=== PATIENT | female | born 1940 | race Hispanic/Latino ===

== ENCOUNTER 2024-12-21 10:26 | Emergency (ER) | payer MEDICARE ==
[~2024-12-21] VITALS: Ht 157.5 cm; Wt 71.7 kg
[2024-12-21] MEDS: IpraTROPium/alBUTERol SULFATE 3 ML SOLUTION IH ONE (10:52)
[2024-12-21 10:53] LABS: APPEARANCE,URINE CLEAR (CLEAR); BILIRUBIN,URINE NEGATIVE (NEGATIVE); COLOR,URINE LIGHT-YELLOW (YELLOW); GLUCOSE, URINE (UA) NEGATIVE (NEGATIVE); KETONES,URINE NEGATIVE (NEGATIVE); LEUKOCYTE ESTERASE ,URINE 25 Leu/uL (NEGATIVE); NITRATE,URINE NEGATIVE (NEGATIVE); PH,URINE 5.5 (5.0-8.0); PROTEIN,URINE NEGATIVE (NEGATIVE); UROBILINOGEN,URINE 0.2 mg/dL (0.2-1.0)
[2024-12-21 10:55] VITALS: PULSE 112; RESP 18
--- NOTE | 2024-12-21 10:55 | NUR ---
PENDING GFR RESULTS, IV SITE, & CONSENT FOR CT EXAM.
[2024-12-21 11:03] LABS: ADD UA MICROSCOPIC YES
[2024-12-21 11:04] LABS: BACTERIA,URINE RARE /HPF (None Seen); MUCUS,URINE RARE LPF (None Seen); SQUAMOUS EPITHELIAL CELL,UR RARE /HPF (0-2)
[2024-12-21] MEDS: ketOROlac 15MG/ML VIAL (15MG/ML) IV ONE (11:11)
[2024-12-21] MEDS: [UNRECOGNIZED DRUG - OTHER] IV ONE (11:12)
[2024-12-21] MEDS: LACTATED RINGERS 1000ML 1,000 ML IV ONE (11:12)
[2024-12-21] MEDS: Solu-medROL 40MG VIAL IVP ONE (11:12)
[2024-12-21 11:16] LABS: BASOPHILS # (AUTO) 0.02 K/uL (0.00-0.20); BASOPHILS % (AUTO) 0.2 % (0.0-5.0); EOSINOPHILS # (AUTO) 0.11 K/uL (0.00-0.70); EOSINOPHILS % (AUTO) 1.2 % (0.0-8.0); IMMATURE GRANULOCYTE ABSOLUTE 0.03 K/uL (0-1); LYMPHOCYTES # (AUTO) 1.6 K/uL (1.0-4.8); LYMPHOCYTES % (AUTO) 16.6 % (21.0-51.0); MEAN CORPUSCULAR HEMOGLOBIN 28.9 pg (27.0-33.0); MEAN CORPUSCULAR HGB CONC 32.4 g/dL (32.0-36.0); MEAN CORPUSCULAR VOLUME 88.9 fL (79-99); MONOCYTES # (AUTO) 0.7 K/uL (0.1-1.0); MONOCYTES % (AUTO) 6.9 % (3.0-13.0); NEUTROPHILS % (AUTO) 74.8 % (40.0-77.0); PLATELET COUNT (AUTO) 350 K/uL (130-400); RED BLOOD CELL COUNT(AUTO) 4.61 MIL/uL (4.00-5.50); RED CELL DISTRIBUTION WIDTH 15.5 % (11.0-15.5); WHITE BLOOD COUNT (AUTO) 9.4 K/uL (4.8-10.8)
[2024-12-21 11:44] LABS: COVID19 (SARS ANTIGEN RAPID) PRESUMPTIVE NEGATIVE (NEGATIVE); INFLUENZA TYPE B Negative For Type B (NEGATIVE)
[2024-12-21 11:48] LABS: INFLUENZA TYPE A Positive For Type A (NEGATIVE)
--- NOTE | 2024-12-21 12:01 | HMCIMG ---
PORTABLE CHEST RADIOGRAPH INDICATION: cough COMPARISON: None FINDINGS: laboratory monitor leads overlie the field of view. Heart size is normal. The pulmonary vascularity and sameer appear normal. No abnormal pulmonary parenchymal opacity or consolidation identified. No significant pleural effusion noted. No pneumothorax detected. Large hiatal hernia. IMPRESSION: Large hiatal hernia without radiographic evidence for any acute cardiopulmonary process.
[2024-12-21 12:11] LABS: CREATININE 0.7 mg/dL (0.5-1.0); POTASSIUM 3.9 mmol/L (3.5-5.1)
[2024-12-21] MEDS ORDERED: IOHEXOL-350 50ML VIAL IV ONE (12:34)
--- NOTE | 2024-12-21 12:46 | HMCIMG ---
CT NECK WITH CONTRAST INDICATION: Right neck submandibular swelling TECHNIQUE: 3D helical CT acquisition images were obtained from the level of the skull base to the thoracic inlet with 50 mL of Omnipaque 350 IV contrast and coronal and sagittal reformats. CT was performed with one or more of the following dose reduction techniques: Automated exposure control, adjustment of the mA and/or kV according to patient size, or use of iterative reconstruction technique. COMPARISON: None FINDINGS: Right parotid gland is larger than the left, and mild surrounding inflammatory fat stranding/edema detected without any discrete parotid gland lesion/mass, including swelling extending distally along the right neck without organized/drainable fluid collection. The visualized portions of the brain, skull base, and orbits appear normal. Moderate right and mild left maxillary sinus fluid. Moderate bilateral sphenoid sinus fluid. Mild bilateral ethmoid sinus mucosal thickening. The visualized nasopharynx and nasal cavity appear normal. The oral cavity, oropharynx, and hypopharynx appear normal. The cervical esophagus and visualized portion of the thoracic esophagus appear normal. The larynx and visualized trachea appear normal. The extramucosal spaces of the neck appear normal. The left parotid and both submandibular glands appear normal. No evidence for salivary duct dilation. 2.3 cm enhancing right thyroid lobe lesion. Left thyroid lobe appears normal. No cervical lymphadenopathy noted. The visualized osseous structures, vasculature, and soft tissues appear normal. The upper mediastinum and lung apices appear normal. IMPRESSION: Acute right parotiditis. 2.3 cm enhancing right thyroid lobe lesion. Correlation with thyroid function tests and nonemergent outpatient sonographic imaging is recommended, if not already performed. Acute moderate paranasal sinusitis.
[2024-12-21] MEDS ORDERED: OSEL75 PO (12:58)
[2024-12-21] MEDS ORDERED: AMOX1TAB16 PO (12:58)
--- NOTE | 2024-12-21 12:59 | ERN ---
General Chief Complaint: Cellulitis Stated Complaint: COUGH,MULTIPLE COMPLAINTS Time Seen by MD: 10:31 History of Present Illness Initial Comments 84-year-old female, history of hypertension, presents for right-sided face swelling. She reports that over the last few days she had a fever and body aches. He has had a dry cough. Today she woke up in the right side of her face is swollen. She has been taking [id number] medications for cold and flu. No dental pain or injury. No earache. No trauma. Allergies: Coded Allergies: No Known Allergies (Unverified Allergy, Unknown, 12/21/24) Past Medical History Past Medical History: Diabetes-Type II, High Cholesterol, Hypertension Past Surgical History: Other Surgical History Other: FOOT ROS Dictation CONSTITUTIONAL: Fever body aches HEAD/FACE: Right face swelling EENT: No eye pain, no blurred vision, no tearing, no double vision, no ear pain, no ear discharge, no nose pain, no nasal congestion, no throat pain, no throat swelling, no mouth pain. RESPIRATORY: Cough CARDIOVASCULAR: No chest pain, no edema, no palpitations, no syncope. GASTROINTESTINAL/ABDOMINAL: No abdominal pain, no constipation, no diarrhea, no nausea, no vomiting. GENITOURINARY: No abnormal discharge, no dysuria, no frequent urination, no hematuria. No complaints of pain in the genitals. MUSCULOSKELETAL: No back pain, no gout, no joint pain, no joint swelling, no muscle pain, no muscle stiffness, no neck pain. INTEGUMENTARY: No change in color, no change in hair/nails, no dryness, no lesion, no lumps, no rash. NEUROLOGICAL/PSYCH: No anxiety, not depressed, no emotional problem, no headache, no numbness, no pre-existing deficit, no history of seizures, no tremors, no weakness. HEMATOLOGIC/LYMPHATIC: Not anemic, no history of blood clots, no apparent bleeding, no bruising, glands not swollen. All Systems Negative, Except as Noted. Physical Exam Physical Exam Dictation VITAL SIGNS: Reviewed. GENERAL APPEARANCE: Alert, oriented x3, no acute distress HEAD AND FACE: Right parotid gland and swelling. EYES: PERRL, pink conjunctivas, eyelid no trauma, anterior chamber clear. EARS: Pinnas intact and no signs of trauma or erythema. Ear canals clear and no discharge. TMs no erythema. NOSE: No discharge, no bleeding. OROPHARYNX: Mouth normal, teeth no caries, tongue pink. Pharynx clear, no erythema. Tonsils no exudates, no abscesses noted. Mucous membrane moist. NECK: Supple, non-tender, no thyromegaly, no masses, no JVD, no bruits. BREAST: Deferred. CHEST: No tenderness, no crepitus, no paradoxical movement, no retractions. LUNGS: Clear, well-ventilated, symmetric, no rales, no wheezing, no rhonchi, no stridor, good breath sounds bilaterally. HEART: Regular rate, regular rhythm, no murmur, no gallops. VASCULAR: No peripheral edema. ABDOMEN: Soft, positive bowel sounds, nondistended, no guarding, nontender, no rebound, no masses no hepatomegaly, no splenomegaly, no Meneses's sign, no hernias. RECTAL: Deferred. GENITAL: Deferred. NEUROLOGICAL: Normal speech, gross motor function intact, gross sensory function intact. MUSCULOSKELETAL: Neck nontender, full range of motion, back nontender, full range of motion. EXTREMITIES: Nontender, full range of motion. SKIN: Color pink, dry, no turgor, no rash, no lacerations, no abrasions, no contusions. LYMPHATICS: Deferred. Results Laboratory and Microbiology Lab and Micro Result Laboratory Tests Test 12/21/24 10:42 12/21/24 10:50 12/21/24 11:17 Urine Color LIGHT-YELLOW (YELLOW) Urine Appearance CLEAR (CLEAR) Urine pH 5.5 (5.0-8.0) Urine Specific [place] 1.012 (1.001-1.031) Urine Protein NEGATIVE mg/dL (NEGATIVE) Urine Glucose (UA) NEGATIVE mg/dL (NEGATIVE) Urine Ketones NEGATIVE mg/dL (NEGATIVE) Urine Occult Blood +- (TRACE) (NEGATIVE) H Urine Nitrate NEGATIVE (NEGATIVE) Urine Bilirubin NEGATIVE mg/dL (NEGATIVE) Urine Urobilinogen 0.2 mg/dL (0.2-1.0) Urine Leukocyte Esterase 25 Chaya/uL (NEGATIVE) H Urine RBC 2-5 /HPF (0-1) H Urine WBC 2-5 /HPF (0-1) H Urine Squamous Epithelial Cells RARE /HPF (0-2) Urine Bacteria RARE /HPF (None Seen) White Blood Count 9.4 K/uL (4.8-10.8) Red Blood Count 4.61 MIL/uL (4.00-5.50) Hemoglobin 13.3 g/dL (12.0-16.0) Hematocrit 41.0 % (36-48) Mean Corpuscular Volume 88.9 fL (79-99) Mean Corpuscular Hemoglobin 28.9 pg (27.0-33.0) Mean Corpuscular Hemoglobin Concent 32.4 g/dL (32.0-36.0) Red Cell Distribution Width 15.5 % (11.0-15.5) Platelet Count 350 K/uL (130-400) Mean Platelet Volume 9.9 fL (7.5-10.5) Immature Granulocyte % (Auto) 0.3 % (0-1) Neutrophils (%) (Auto) 74.8 % (40.0-77.0) Lymphocytes (%) (Auto) 16.6 % (21.0-51.0) L Monocytes (%) (Auto) 6.9 % (3.0-13.0) Eosinophils (%) (Auto) 1.2 % (0.0-8.0) Basophils (%) (Auto) 0.2 % (0.0-5.0) Neutrophils # (Auto) 7.0 K/uL (1.8-7.7) Lymphocytes # (Auto) 1.6 K/uL (1.0-4.8) Monocytes # (Auto) 0.7 K/uL (0.1-1.0) Eosinophils # (Auto) 0.11 K/uL (0.00-0.70) Basophils # (Auto) 0.02 K/uL (0.00-0.20) Absolute Immature Granulocyte (auto 0.03 K/uL (0-1) Nucleated Red Blood Cells 0.0 % (0.0-0.19) Sodium Level 139 mmol/L (136-145) Potassium Level 3.9 mmol/L (3.5-5.1) Chloride Level 99 mmol/L (101-111) L Carbon Dioxide Level 30 mmol/L (21-32) Blood Urea Nitrogen 16 mg/dL (7-18) Creatinine 0.7 mg/dL (0.5-1.0) Glomerular Filtration Rate Calc 86 mL/min (>90) Random Glucose 108 mg/dL (70-105) H Lactic Acid Level 2.4 mmol/L (0.8-2.5) Total Calcium 9.2 mg/dL (8.5-10.1) Total Creatine Kinase 130 U/L (21-232) Troponin I High Sensitivity 39 ng/L (4-50) C-Reactive Protein, Quantitative 19.40 mg/L (0.5-3.0) H Influenza Type A Antigen Positive For Type A Influenza Type B Antigen Negative For Type B SARS-CoV-2 Antigen (Rapid) PRESUMPTIVE NEGATIVE MDM CC: Right face swelling, fever for the last few days, cough, flu-like illness Historian: Patient Comorbidities: Advanced age, hypertension Limitations by social determinants of health: None Differential diagnosis: Parotiditis due to virus or bacteria, abscess, neoplasm, autoimmune, other. Vital signs: Tachycardic heart rate 122, afebrile. Mild hypertension. These improved in the ER with treatment. Labs (independently ordered and interpreted by me ): CBC is normal without any leukocytosis or shift. Chemistry panel shows stable electrolytes, lactic acid 2.4, CRP elevated. Troponin normal. CK normal. Urinalysis shows 25 leuk esterase otherwise unremarkable. Flu A positive consistent with symptoms. CXR ( independently interpreted by me): Hiatal hernia, otherwise no cardiomegaly or focal infiltrates. CT soft tissue neck with contrast (independently interpreted by me ): Parotiditis otherwise unremarkable. Consistent with the patient's symptoms. Treatment in ED: 1 L normal saline, 40 mg IV prednisone, 50 mg IV Toradol. DuoNeb. Re-evaluation: Vital signs improved, stable, lung sounds improved. Plan: We will DC with Tamiflu, Augmentin, supportive care and recommend PCP follow up. ED Course Orders Procedure Category Date Status Time Cbc With Differential LAB 12/21/24 Complete 10:39 Blood Cult WILLIAMS 12/21/24 In Process 10:39 Urinalysis Profile LAB 12/21/24 Complete 10:39 Culture Urine WILLIAMS 12/21/24 Logged 10:39 0.9%Nacl 1000ml (Ns PHA 12/21/24 In Process 1000ml) 11:00 Creatine Kinase, Total LAB 12/21/24 Complete 10:39 Troponin I High LAB 12/21/24 Complete Sensitivity 10:39 Lactic Acid LAB 12/21/24 Complete 10:39 Basic Metabolic Panel LAB 12/21/24 Complete 10:39 Covid19 (Sars Antigen LAB 12/21/24 Complete Rapid) 10:39 Influenza Type A & B, LAB 12/21/24 Complete Rapid 10:39 Crp Quantitative LAB 12/21/24 Complete 10:39 Ct Neck Soft Tiss CT 12/21/24 Resulted W/Contrast 10:39 Methylprednisolone PHA 12/21/24 Complete Succ 40mg (Solu-Medro 11:00 Lactated Ringers PHA 12/21/24 Complete 1000ml (Lactated 11:00 Ketorolac PHA 12/21/24 Complete Tromethamine 15mg/Ml 11:00 Chest 1vw RAD 12/21/24 Resulted 10:43 Ipratropium/Albuterol PHA 12/21/24 Complete Neb (Duoneb) 11:00 Iohexol (Omnipaque) PHA 12/21/24 Complete 12:34 Current Medications Medications (Trade) Dose Ordered Sig/Luis Route PRN Reason Start Time Stop Time Status Last Admin Dose Admin Albuterol (DUOneb) 1 UDVIAL ONCE ONCE IH 12/21/24 11:00 12/21/24 11:01 DC 12/21/24 10:52 Iohexol (Omnipaque) 50 ml STK-MED ONCE IV 12/21/24 12:34 12/21/24 12:34 DC Ketorolac Tromethamine (toRADol) 15 mg ONCE ONCE IV 12/21/24 11:00 12/21/24 11:01 DC 12/21/24 11:11 Lactated Ringer's 1,000 ml @ 0 mls/hr ONCE ONCE IV 12/21/24 11:00 12/21/24 11:01 DC 12/21/24 11:12 Methylprednisolone Sodium Succinate (Solu-medROL 40MG) 40 mg ONCE ONCE IVP 12/21/24 11:00 12/21/24 11:01 DC 12/21/24 11:12 Sodium Chloride 2,151 ml @ 717 mls/hr ONCE ONCE IV 12/21/24 11:00 12/21/24 13:59 Vital Signs Date Time Temp Pulse Resp B/P (MAP) Pulse Ox O2 Delivery O2 Flow Rate FiO2 12/21/24 11:22 98.2 106 18 151/82 94 Room Air* 0 21 12/21/24 10:55 112 18 12/21/24 10:29 99.0 122 18 163/103 97 Room Air 0 DX & DISP Disposition: Discharge Departure Impression: Primary Impression: Influenza A Additional Impressions: Swelling of right parotid gland, Wheezing, Thyroid nodule Condition: Stable Scripts Oseltamivir Phosphate (Tamiflu) 75 Mg Cap 1 CAP PO BID for 5 Days, #10 CAP 0 Refills Prov: ADRIÁN DUPONT DO 12/21/24 Amoxicillin/Potassium Clav (Amox Tr-K Clv 875-125 mg Tab) 875 Mg-125 Mg Tablet 1 TAB PO BID for 7 Days, #14 TAB 0 Refills Prov: ADRIÁN DUPONT DO 12/21/24 Additional Instructions: The swelling on your face is called parotiditis. This is likely due to a virus or bacteria. You tested positive for influenza A. This may be the cause of your symptoms. Your lab work ( CBC, BNP, liver enzymes, procalcitonin, CRP, lactic acid ) is consistent with a viral infection. There are no life-threatening or dangerous findings. The CT scan of your face shows parotiditis. There was also a nodule on your thyroid gland. I recommend he follow up with your primary doctor regarding this. You may need further testing. I have prescribed Tamiflu, which is an antiviral medication used for the flu. Take as prescribed. I have prescribed amoxicillin/clavulanic acid. This is an antibiotic. Please take as prescribed. For face swelling, I recommend he apply warm compresses multiple times throughout the day. I recommend that you drink sour foods to produce saliva production. You can take 1000 mg of acetaminophen or 600 mg of ibuprofen as needed for pain or fever. Please follow up with your doctor early next week for re-evaluation. Return to the emergency department sooner if you have any concerns. Referrals: NONE (PCP) ADRIÁN DUPONT DO Dec 21, 2024 12:59
[2024-12-21 13:21] VITALS: BP 153/89; PULSE 105; RESP 20; TEMP 98.4; O2SAT 95
== END 2024-12-21 13:23 | disposition home or self-care (01) ==
LOC: EDH 10:26
DX: J10.1 Influenza due to other identified influenza virus with other respiratory manifestations (principal); E04.1 Nontoxic single thyroid nodule; R06.2 Wheezing; E11.9 Type 2 diabetes mellitus without complications; E78.00 Pure hypercholesterolemia, unspecified; I10 Essential (primary) hypertension; Z20.822 Contact with and (suspected) exposure to COVID-19
CPT/HCPCS: 99285; 96374; 70491; 96361; 71045; 96375; 87426; 82550; 84484; 80048; 85025; 87040 ×2; 87086; 87804 ×2; 83605; 86140; 81001; 36415; 94640; J1885; J2919; J7120; Q9967